=== PATIENT | female | born 1940 | race Caucasian/White ===

== ENCOUNTER 2025-03-29 11:16 | Emergency (ER) | payer MEDICARE ==
[2025-03-29] MEDS: METOCLOPRAMIDE 5 MG/ML 2 ML VIAL IVP STA (12:14)
[2025-03-29 12:29] LABS: ALT 13 U/L (4-34); African American GFR (CKD) >90 (>60 ml/min/1.73 sqM); Anion Gap 9 mmol/L; Blood Urea Nitrogen 13 mg/dL (7-17); Calcium 9.1 mg/dL (8.4-10.2); Carbon Dioxide 23 mmol/L (22-30); Chloride 103 mmol/L (98-107); Glucose 118 mg/dL (74-99); Non-African American GFR(CKD) 89 (>60 ml/min/1.73 sqM); Sodium 135 mmol/L (137-145); Total Bilirubin 1.5 mg/dL (0.2-1.3)
[2025-03-29 12:30] LABS: AST 35 U/L (14-36); Alkaline Phosphatase 51 U/L (38-126); Magnesium 1.9 mg/dL (1.6-2.3); Potassium 4.4 mmol/L (3.5-5.1)
--- NOTE | 2025-03-29 13:01 | ED ---
Dizziness HPI - General Chief Complaint: Dizziness Stated Complaint: Dizziness Time Seen by Provider: 03/29/25 11:25 Source: patient, EMS, RN notes reviewed Mode of arrival: EMS Limitations: no limitations - History of Present Illness Initial Comments: 85-year-old female presents emergency department via EMS with chief complaint of dizziness. Patient states she was sitting there and move quickly and had acute on onset of symptoms. Patient states that she is very dizzy, nausea with any sort of movement. Patient did receive Zofran by EMS without much relief. She denies any focal weakness denies any visual disturbance other than she feels very dizzy. She states that she just finished a course of amoxicillin 10 days for bilateral otitis media she is scheduled for a follow-up appointment on Thursday. She has no history of vertigo denies current headache, neck pain neck stiffness no chest pain no palpitations - Related Data Previous Rx's Medication Instructions Recorded Meclizine [Antivert] 25 mg PO TID PRN #15 tab 03/29/25 Ondansetron Odt [Zofran Odt] 4 mg PO Q8HR PRN #10 tab 03/29/25 Allergies Allergy/AdvReac Type Severity Reaction Status Date / Time No Known Allergies Allergy Verified 03/29/25 11:26 Review of Systems ROS Statement: Those systems with pertinent positive or pertinent negative responses have been documented in the HPI. ROS Other: All systems not noted in ROS Statement are negative. 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 Absent: scleral icterus, conjunctival injection, periorbital swelling ENT exam: Present: normal exam, normal oropharynx, mucous membranes moist Neck exam: Present: normal inspection, full ROM. Absent: tenderness, meningismus, lymphadenopathy Respiratory exam: Present: normal lung sounds bilaterally. Absent: respiratory distress, wheezes, rales, rhonchi, stridor Cardiovascular Exam: Present: regular rate, normal rhythm, normal heart sounds. Absent: systolic murmur, diastolic murmur, rubs, gallop, clicks GI/Abdominal exam: Present: soft, normal bowel sounds. Absent: distended, tenderness, guarding, rebound, rigid Extremities exam: Present: normal inspection, full ROM, normal capillary refill. Absent: tenderness, pedal edema, joint swelling, calf tenderness Back exam: Present: normal inspection, full ROM Neurological exam: Present: alert, oriented X3, CN II-XII intact, other ([id number] intact). Absent: motor sensory deficit Skin exam: Present: warm, dry, intact, normal color. Absent: rash Course Vital Signs 03/29/25 03/29/25 03/29/25 11:24 12:17 13:37 Temperature 97.9 F 97.8 F Pulse Rate 63 73 89 Respiratory 18 18 18 Rate Blood Pressure 173/80 154/88 150/82 O2 Sat by Pulse 94 L 98 92 L Oximetry 03/29/25 16:52 Temperature 97.8 F Pulse Rate 87 Respiratory 20 Rate Blood Pressure 146/82 O2 Sat by Pulse 96 Oximetry EKG Findings - EKG Comments: EKG Findings:: EKG performed at 11: 29 sinus rhythm rate of 64 CA 180 QRS 101 QT/QTc 430/439 - EKG Results: EKG: interpreted by BENNY Medical Decision Making - Medical Decision Making Was pt. sent in by a medical professional or institution (, PA, VESSEL LINER, urgent care, hospital, or intermediate...) When possible be specific @ -No Did you speak to anyone other than the patient for history (EMS, parent, family, police, friend...)? What history was obtained from this source @ -No Did you review nursing and triage notes (agree or disagree)? Why? @ -I reviewed and agree with nursing and triage notes Were old charts reviewed (outside hosp., previous admission, EMS record, old EKG, old radiological studies, urgent care reports/EKG's, intermediate records)? Report findings @ -No old charts were reviewed Differential Diagnosis (chest pain, altered mental status, abdominal pain women, abdominal pain men, vaginal bleeding, weakness, fever, dyspnea, syncope, headache, dizziness, GI bleed, back pain, seizure, CVA, palpatations, mental health, musculoskeletal)? @ -Differential Dizziness: Benign paroxysmal positional Vertigo, Meniere's disease, otitis media, acoustic neuroma, vertebrobasilar insufficiency, cerebellar stroke, encephalitis, hypovolemic, arrhythmia, coronary artery syndrome, anemia, this is not meant to be an all-inclusive list EKG interpreted by me (3pts min.). @ -As above X-rays interpreted by me (1pt min.). @ -X-ray shows no acute cardiopulmonary process CT interpreted by me (1pt min.). @ -CT brain shows age-related changes no acute intracranial hemorrhage, mass U/S interpreted by me (1pt. min.). @ -None done What testing was considered but not performed or refused? (CT, X-rays, U/S, labs)? Why? @ -None What meds were considered but not given or refused? Why? @ -None Did you discuss the management of the patient with other professionals (professionals i.e. , PA, VESSEL LINER, lab, RT, psych nurse, social organization professor, store receiving clerk, teacher, grant officer, field nurse case manager)? Give summary @ -No Was smoking cessation discussed for >3mins.? @ -No Was critical care preformed (if so, how long)? @ -No Were there social determinants of health that impacted care today? How? (Homelessness, low income, unemployed, alcoholism, drug addiction, transportation, low edu. Level, literacy, decrease access to med. care, penitentiary, rehab)? @ -No Was there de-escalation of care discussed even if they declined (Discuss DNR or withdrawal of care, Hospice)? DNR status @ -No What co-morbidities impacted this encounter? (DM, HTN, Smoking, COPD, CAD, Cancer, CVA, ARF, Chemo, Hep., AIDS, mental health diagnosis, sleep apnea, morbid obesity)? @ -None Was patient admitted / discharged? Hospital course, mention meds given and route, prescriptions, significant lab abnormalities, going to OR and other pertinent info. @ -Charge patient presented after episode of dizziness. Patient had negative workup no focal deficits no neurological deficits. Patient is improved and resolved after Antivert and IV fluids. Undiagnosed new problem with uncertain prognosis? @ -No Drug Therapy requiring intensive monitoring for toxicity (Heparin, Nitro, Insulin, Cardizem)? @ -No Were any procedures done? @ -No Diagnosis/symptom? @ -Vertigo Acute, or Chronic, or Acute on Chronic? @ -Acute Uncomplicated (without systemic symptoms) or Complicated (systemic symptoms)? @Complicated Side effects of treatment? @ -No Exacerbation, Progression, or Severe Exacerbation? @ -No Poses a threat to life or bodily function? How? (Chest pain, USA, MA, pneumonia, PE, COPD, DKA, ARF, appy, cholecystitis, CVA, Diverticulitis, Homicidal, Suicidal, threat to staff... and all critical care pts) @ -No - Lab Data Result diagrams: 03/29/25 12:17 03/29/25 12:17 Lab Results 03/29/25 03/29/25 03/29/25 Range/Units 12:17 12:17 12:17 WBC 5.17 (4.50-10.00) 10*3/uL RBC 4.53 (4.10-5.20) 10*6/uL Hgb 13.1 (12.0-15.0) g/dL Hct 39.7 (37.2-46.3) % MCV 87.6 (80.0-97.0) fL MCH 28.9 (27.0-32.0) pg MCHC 33.0 (32.0-37.0) g/dL Plt Count 225 (140-440) 10*3/uL MPV 9.3 L (9.5-12.2) fL Immature Gran % (Auto) 0.4 % Neutrophils % 68.8 % Lymphocytes % 18.6 % Monocytes % 7.7 % Eosinophils % 3.1 % Basophils % 1.4 % Immature Gran # 0.02 (0.00-0.04) 10*3/uL Neutrophils # 3.56 (1.80-7.70) 10*3/uL Lymphocytes # 0.96 (0.90-5.00) 10*3/uL Monocytes # 0.40 (0.20-1.00) 10*3/uL Eosinophils # 0.16 (0.04-0.35) 10*3/uL Basophils # 0.07 (0.00-0.10) 10*3/uL Sodium 135 L (137-145) mmol/L Potassium 4.4 (3.5-5.1) mmol/L Chloride 103 (98-107) mmol/L Carbon Dioxide 23 (22-30) mmol/L Anion Gap 9 mmol/L BUN 13 (7-17) mg/dL Creatinine 0.52 (0.52-1.04) mg/dL Est GFR (CKD-EPI)AfAm >90 (>60 ml/min/1.73 sqM) Est GFR (CKD-EPI)NonAf 89 (>60 ml/min/1.73 sqM) Glucose 118 H (74-99) mg/dL Calcium 9.1 (8.4-10.2) mg/dL Magnesium 1.9 (1.6-2.3) mg/dL Total Bilirubin 1.5 H (0.2-1.3) mg/dL AST 35 (14-36) U/L ALT 13 (4-34) U/L Alkaline Phosphatase 51 (38-126) U/L Troponin I <0.012 (0.000-0.034) ng/mL Total Protein 7.0 (6.3-8.2) g/dL Albumin 4.0 (3.5-5.0) g/dL Disposition Clinical Impression: Vertigo, Dehydration Disposition: HOME SELF-CARE Condition: Stable Instructions (If sedation given, give patient instructions): Dizziness (ED) Additional Instructions: Please return to the Emergency Department if symptoms worsen or any other concerns. Prescriptions: Meclizine [Antivert] 25 mg PO TID PRN #15 tab PRN Reason: Vertigo Ondansetron Odt [Zofran Odt] 4 mg PO Q8HR PRN #10 tab PRN Reason: Nausea Is patient prescribed a controlled substance at d/c from ED?: No Referrals: Minal Villalobos III, MD [STAFF PHYSICIAN] - 1-2 days Time of Disposition: 15:40
--- NOTE | 2025-03-29 13:06 | CT ---
EXAMINATION TYPE: CT brain wo con DATE OF EXAM: 03/29/2025 12:47 PM COMPARISON: None. CLINICAL INDICATION: Female, 85 years old with history of Dizziness, Sudden onset dizziness, TECHNIQUE: Examination was done in axial plane without intravenous contrast. Coronal and sagittal r econstructions performed. CT DLP: 1186.4 mGycm, Automated exposure control for dose reduction was used. FINDINGS: There is no evidence of acute intracranial hemorrhage, acute ischemic changes, mass, mass-effect, or extra-axial fluid collection. There is no effacement of cerebral sulci or basal subarachnoid cister ns. There is no hydrocephalus. There is no midline shift. Charles-white matter distinction is preserv ed. Scattered mild to moderate patchy white matter hypodensities in both cerebral hemispheres. Mild age-r elated volume loss overlying the bilateral cerebral convexities. Atherosclerotic calcifications withi n the carotid siphons. Trace mucosal thickening ethmoid air cells. Orbits and globes are intact. Mastoid air cells are well pneumatized. IMPRESSION: Scattered mild to moderate patchy burden of chronic small vessel ischemic disease. Mild age-related c erebral atrophy. No acute intracranial abnormality seen. [facility], , 03/29/2025 1:03 PM
--- NOTE | 2025-03-29 13:10 | XR ---
EXAMINATION TYPE: XR chest 2V DATE OF EXAM: 03/29/2025 1:04 PM COMPARISON: none CLINICAL INDICATION: Female, 85 years old with history of dizziness; TECHNIQUE: XR chest 2V Frontal and lateral views of the chest. FINDINGS: Lungs/Pleura: Low lung volumes are present. There is no evidence of pleural effusion, focal consolida tion, or pneumothorax. Pulmonary vascularity: Unremarkable. Heart/mediastinum: Cardiomediastinal silhouette is enlarged. Hiatal hernia projects over the mediasti num. Musculoskeletal: No acute osseous pathology. Vertebroplasty changes to the mid spine with increased k yphosis. IMPRESSION: No acute cardiopulmonary disease/process. Streaky atelectasis no evidence for airspace disease. Large hiatal hernia. [facility], , 03/29/2025 1:08 PM
[2025-03-29] MEDS: SODIUM CHLORIDE 0.9% 500 ML 500 ML IV STA (13:21)
[2025-03-29] MEDS: MECLIZINE 12.5 MG TAB PO STA (13:22)
[2025-03-29 13:41] VITALS: TEMP 97.8
[2025-03-29 13:59] LABS: Basophils # (A) 0.07 10*3/uL (0.00-0.10); Basophils % (A) 1.4 %; Eosinophils # (A) 0.16 10*3/uL (0.04-0.35); Eosinophils % (A) 3.1 %; HCT 39.7 % (37.2-46.3); HGB 13.1 g/dL (12.0-15.0); Lymphocytes # (A) 0.96 10*3/uL (0.90-5.00); Lymphocytes % (A) 18.6 %; MCH 28.9 pg (27.0-32.0); MCV 87.6 fL (80.0-97.0); Mean Platelet Volume 9.3 fL (9.5-12.2); Monocytes % (A) 7.7 %; Neutrophils # (A) 3.56 10*3/uL (1.80-7.70); Neutrophils % (A) 68.8 %; Platelet Count 225 10*3/uL (140-440); RBC 4.53 10*6/uL (4.10-5.20); RDW 14.4 % (11.5-14.5); WBC 5.17 10*3/uL (4.50-10.00)
[2025-03-29 16:55] VITALS: BP 146/82; PULSE 87; RESP 20
== END 2025-03-29 17:17 | disposition home or self-care (01) ==
LOC: SUPCPDRO 11:16 → EC 11:16
DX: E86.0 Dehydration (principal); R42 Dizziness and giddiness
CPT/HCPCS: 36415; 93005; 80053; 83735; 84484; 85025; 71046; 70450; 99284; 96374; J2765